=== PATIENT | female | born 1990 | race Two or more races ===

== ENCOUNTER → 2024-09-29 | Outpatient (CLI) | payer OTHER | LOC: M RAD 12:42 | PROVIDERS: ATTEND Advanced Practice Midwife | DX: Z34.02 Encounter for supervision of normal first pregnancy, second trimester (principal); Z3A.22 22 weeks gestation of pregnancy ==

== ENCOUNTER → 2024-11-04 | Outpatient (CLI) | payer OTHER ==
[2024-11-04 14:10] LABS: PLATELET COUNT, AUTOMATED 258 10^3/uL (150-450)
[2024-11-04 14:15] LABS: LDH LACTATE DEHYDROGENASE 163 U/L (120-246)
[2024-11-04 14:16] LABS: ALT/SGPT 14 U/L (7.0-40); AST/SGOT 16 U/L (<34); CREATININE FOR GFR 0.58 MG/DL (0.55-1.30); GLOMERULAR FILTRATION RATE > 90.0 (>60)
[2024-11-04 14:35] LABS: TOTAL PROTEIN,RANDOM URINE 31.2 MG/DL (0.0-14.0)
[2024-11-04 14:41] LABS: HIV 1&2 SCREEN NEGATIVE (NEGATIVE)
[2024-11-04 14:50] LABS: HEPATITIS C VIRUS ABY INDEX < 0.02 INDEX (<0.8)
[2024-11-04 15:13] LABS: Trichomonas vaginalis (AMP) NOT DETECTED (NEGATIVE)
[2024-11-04 15:37] LABS: GC DNA AMPLIFICATION NEGATIVE (NEGATIVE)
== END ==
LOC: M PLALAB 09:44
PROVIDERS: ATTEND Advanced Practice Midwife
DX: Z34.82 Encounter for supervision of other normal pregnancy, second trimester (principal)

== ENCOUNTER → 2024-11-04 | Outpatient (CLI) | payer OTHER ==
[2024-11-04 14:10] LABS: GLUCOSE CHALLENGE TEST 1 HOUR 116 MG/DL (LESS THAN 140); PLATELET COUNT, AUTOMATED 269 10^3/uL (150-450)
[2024-11-04 14:42] LABS: HIV 1&2 SCREEN NEGATIVE (NEGATIVE)
[2024-11-04 14:50] LABS: HEPATITIS C VIRUS ABY INDEX < 0.02 INDEX (<0.8)
[2024-11-04 15:14] LABS: Trichomonas vaginalis (AMP) NOT DETECTED (NEGATIVE)
[2024-11-04 15:38] LABS: GC DNA AMPLIFICATION NEGATIVE (NEGATIVE)
== END ==
LOC: M PLALAB 09:39
PROVIDERS: ATTEND Advanced Practice Midwife
DX: Z34.82 Encounter for supervision of other normal pregnancy, second trimester (principal)

== ENCOUNTER → 2024-11-17 | Outpatient (CLI) | payer OTHER | LOC: M WHC 12:29 | PROVIDERS: ATTEND Advanced Practice Midwife | DX: Z34.82 Encounter for supervision of other normal pregnancy, second trimester (principal); Z3A.29 29 weeks gestation of pregnancy ==

== ENCOUNTER → 2025-01-04 | Outpatient (REF) | payer OTHER | LOC: M SFHCWAGY 16:45 | PROVIDERS: ATTEND Student in an Organized Health Care Education/Training Program | DX: Z34.93 Encounter for supervision of normal pregnancy, unspecified, third trimester (principal); Z3A.36 36 weeks gestation of pregnancy ==

== ENCOUNTER 2025-01-19 10:00 | Inpatient (IN) | payer OTHER ==
[~2025-01-19] VITALS: Ht 162.6 cm; Wt 117.8 kg
[2025-01-19] MEDS ORDERED: PRENTAB53 PO (11:03)
[2025-01-19] MEDS ORDERED: ECOT81TA5 PO (11:03)
[2025-01-26] VITALS (7 sets, daily range): BP systolic 112–122; BP diastolic 55–75; TEMP 97.4; O2SAT 97–100
[2025-01-26 06:35] LABS: PLATELET COUNT, AUTOMATED 275 10^3/uL (150-450)
[2025-01-26] MEDS ORDERED: MORPHINE PRES-FREE INJ 10 MG/10 ML VIAL As Ordered ONE (07:21)
[2025-01-26] MEDS ORDERED: OXYTOCIN INJ 10UNITS/ML 1ML VIAL As Ordered ONE (07:21)
[2025-01-26] MEDS ORDERED: OXYTOCIN 30UNITS IN 0.9% NaCl 500ML IV BAG IV ONE (07:21)
[2025-01-26] MEDS ORDERED: ONDANSETRON 4MG/2ML VIAL As Ordered ONE (07:21)
[2025-01-26] MEDS ORDERED: dexAMETHasone 4 MG/ML 1 ML VIAL As Ordered ONE (07:21)
[2025-01-26] MEDS: LR 1,000 ML IV SCH ×2 (07:30→09:33)
[2025-01-26] MEDS: BICITRA 30 ML SOLN UDC PO ONE (07:35)
[2025-01-26 07:41] LABS: HIV 1&2 SCREEN NEGATIVE (NEGATIVE)
[2025-01-26] MEDS: ceFAZolin SODIUM 2 GM in DEXTROSE 5% (D5W) ADV/MINI-BAG 50 ML IV ONE (07:44)
[2025-01-26] MEDS ORDERED: PHENYLephrine 500MCG 5ML (100MCG/ML) SYRINGE As Ordered ONE (07:52)
[2025-01-26 07:54] LABS: HEPATITIS C VIRUS ABY INDEX < 0.02 INDEX (<0.8)
[2025-01-26] MEDS ORDERED: ACETAMINOPHEN 1000MG/100ML IV BAG As Ordered ONE (08:08)
[2025-01-26] MEDS ORDERED: KETOROLAC 30 MG/ML 1 ML VIAL As Ordered ONE (08:09)
[2025-01-26] MEDS ORDERED: CALCIUM CARBONATE 500 MG CHEW U/D PO PRN (08:50)
[2025-01-26] MEDS ORDERED: METHYLERGONOVINE MALEATE 0.2 MG/ML 1 ML VIAL IM PRN (08:50)
[2025-01-26] MEDS ORDERED: RHOGAM 300MCG (1500IU) INJ IM SCH (08:50)
[2025-01-26] MEDS ORDERED: MORPHINE 4 MG/ML 1 ML VIAL IV PRN (08:50)
[2025-01-26] MEDS ORDERED: ANUSOL HC CREAM 30 GM TOP PRN (08:50)
[2025-01-26] MEDS ORDERED: **NOTE PATIENT COMMENT** MISC XX SCH (09:15)
[2025-01-26] MEDS ORDERED: diphenhydrAMINE 50 MG/ML VIAL IV PRN (09:15)
[2025-01-26] MEDS ORDERED: NALOXONE INJ 0.4 MG/1 ML VIAL IV PRN ×2 (09:15)
[2025-01-26] MEDS ORDERED: MEPERIDINE 25 MG/ML 1 ML VIAL IV PRN (09:15)
[2025-01-26] MEDS ORDERED: ONDANSETRON 4MG/2ML VIAL IV PRN (09:15)
[2025-01-26] MEDS: SLF 3 ML SYR IV SCH (09:15)
[2025-01-26] MEDS ORDERED: HYDROMORPHONE HCL 0.5 MG/0.5 ML SYRINGE IV PRN (09:15)
[2025-01-26] MEDS: OXYTOCIN DRIP 30 UNITS in IV 1 EA IV SCH (09:27)
[2025-01-26] MEDS: DOCUSATE SODIUM 100 MG CAPSULE PO SCH (10:48)
[2025-01-26] MEDS: FERROUS SULFATE 325 MG TAB PO SCH (10:48)
[2025-01-26] MEDS: PRENATAL VITAMINS CHEWABLE TABLET PO SCH (10:48)
[2025-01-26 11:40] LABS: PLATELET COUNT, AUTOMATED 252 10^3/uL (150-450)
[2025-01-26 12:10] LABS: CREATININE FOR GFR 0.61 MG/DL (0.55-1.30); GLOMERULAR FILTRATION RATE > 90.0 (>60)
[2025-01-26] MEDS: KETOROLAC 30 MG/ML 1 ML VIAL IV SCH (14:11)
[2025-01-26] MEDS: ENOXAPARIN 40 MG/0.4 ML SYRINGE (J1650 PER 10MG) SC SCH (14:11)
[2025-01-26] MEDS: ONDANSETRON 4MG/2ML VIAL IV PRN (14:12)
[2025-01-27 02:00] VITALS: BP 114/58; O2SAT 100
[2025-01-27 06:00] VITALS: BP 112/56; O2SAT 98
[2025-01-27 08:58] LABS: PLATELET COUNT, AUTOMATED 233 10^3/uL (150-450)
[2025-01-27 10:00] VITALS: BP 125/63; O2SAT 99
[2025-01-27] MEDS: IBUPROFEN 800 MG TAB PO SCH (11:05)
[2025-01-27 14:45] VITALS: BP 113/59; O2SAT 100
[2025-01-27 18:30] VITALS: BP 129/59; O2SAT 99
[2025-01-27] MEDS: PERCOCET 5MG/325MG TAB PO PRN (18:31)
[2025-01-27 21:34] VITALS: BP 107/66; O2SAT 100
[2025-01-28 01:20] VITALS: BP 141/79; O2SAT 99
[2025-01-28] MEDS: PERCOCET 5MG/325MG TAB PO PRN (01:38)
[2025-01-28 06:22] VITALS: BP 114/59; O2SAT 100
[2025-01-28] MEDS: MEASLES,MUMPS,RUBELLA VACCINE INJ (MMR-II) SC.IMMUN ONE (09:00)
[2025-01-28] MEDS: SIMETHICONE 80MG CHEW TAB PO PRN (09:16)
[2025-01-28] MEDS: ACETAMINOPHEN 500 MG TAB PO PRN (09:17)
[2025-01-28] MEDS ORDERED: FERR1TAB8 PO (12:58)
[2025-01-28] MEDS ORDERED: COLA100C5 PO (12:58)
[2025-01-28] MEDS ORDERED: ACET-683 PO (12:58)
[2025-01-28] MEDS ORDERED: IBUP80TA PO (12:58)
[2025-01-28] MEDS ORDERED: PERCOCET PO (13:00)
[2025-01-28 18:00] VITALS: BP 139/70; O2SAT 99
[2025-01-28] MEDS: FLUZONE VACCINE TRI PF(25-26) 0.5ML SYRINGE IM.IMMUN ONE (18:49)
== END 2025-01-28 19:02 | disposition home or self-care (01) | DRG 785 ==
LOC: M LDI 01-26 05:51 → EDSTATUS 01-26 07:30 → M OBS 01-26 10:22
PROVIDERS: ADMIT Obstetrics & Gynecology; ATTEND Obstetrics & Gynecology
PROC: 0UB70ZZ Excision of Bilateral Fallopian Tubes, Open Approach (ICD-10-PCS; 2025-01-26)
PROC: 10D00Z1 Extraction of Products of Conception, Low, Open Approach (ICD-10-PCS; principal; 2025-01-26 07:30)
DX: O34.211 Maternal care for low transverse scar from previous cesarean delivery (principal); Z37.0 Single live birth; Z3A.39 39 weeks gestation of pregnancy; Z30.2 Encounter for sterilization